=== PATIENT | female | born 1990 | race Caucasian/White ===

== ENCOUNTER 2022-08-21 21:41 | Emergency (ER) | payer SELFPAY ==
--- NOTE | ~2022-08-21 | XR_ITS ---
EXAMINATION: XR CHEST CLINICAL INFORMATION: Cough COMPARISON: 09/15/2013 TECHNIQUE: Frontal view of the chest was obtained. FINDINGS: No significant abnormality is noted involving the heart, lungs, mediastinum, bony thorax or soft tissues. XR/XR chest 1V IMPRESSION: Unremarkable examination.
[2022-08-21 21:47] VITALS: BP 149/97; PULSE 74; RESP 18; TEMP 37.1; O2SAT 97; BMI 36.0
[2022-08-21 22:15] LABS: IDNOW Serial# 08D9AD1C; Strep A Nucleic Acid Negative (Negative)
--- NOTE | 2022-08-21 22:31 | ED.URI ---
HPI - URI/Sore Throat General Chief Complaint: Upper Respiratory Symptoms Stated Complaint: Chest congestion Time Seen by Provider: 08/21/22 22:31 Source: patient Mode of arrival: ambulatory Limitations: no limitations History of Present Illness HPI Narrative: Patient been sick for last 6 days with sore throat cough congestion chills worse for last for 3 days no other family members sick complain of body aches dry cough mostly no shortness of breath no fever patient taking Mucinex without much relief Related Data Previous Rx's Medication Instructions Recorded amoxicillin 875 mg-potassium 1 tab PO BID #20 tabs 08/21/22 clavulanate 125 mg tablet benzonatate 200 mg capsule 200 mg PO TID PRN cough #20 caps 08/21/22 Allergies Allergy/AdvReac Type Severity Reaction Status Date / Time No Known Allergies Allergy Unverified 03/03/20 17:36 Review of Systems Review of Systems: Yes all other systems are reviewed and are negative [facility] Social History Social History Advance Directives: No Advance Directives Information Provided: No Physical Exam Vital Signs: Vital Signs: Last Vital Signs Temp 98.4 F 08/21/22 22:51 Pulse 71 08/21/22 22:51 Resp 18 08/21/22 22:51 BP 129/93 H 08/21/22 22:51 Pulse Ox 95 08/21/22 22:51 O2 Del Method 08/21/22 22:51 BMI result Body Mass Index 36.0 Appearance: Alert. Oriented X3. No acute distress. Eyes: PERRLA, No Nystagmus ENT: Pharynx normal. Oral Mucosa moist Neck: Normal inspection. Neck supple. CVS: Normal heart rate and rhythm. Pulses normal. Respiratory: No respiratory distress. Equal air entry bilateral, no wheezing/rales/rhonchi Abdomen: Soft and nontender. Bowel sounds are present, Skin: Skin warm and dry. Normal skin color. Normal skin turgor. Extremities: No lower extremity edema. No calf tenderness Neuro: Oriented X 3. No motor deficit. Medications Administered Discontinued Medications Generic Name Dose Route Start Last Admin Trade Name Freq PRN Reason Stop Dose Admin Amoxicillin/Clavulanate Potassium 875 mg 08/21/22 22:49 08/21/22 23:02 Amoxicillin/Potassium Clav 875 Mg Tablet PO 08/21/22 22:50 875 mg ONCE ONE Administration Benzonatate 200 mg 08/21/22 22:49 08/21/22 23:02 Benzonatate 100 Mg Capsule PO 08/21/22 22:50 200 mg ONCE ONE Administration Medical Decision Making Lab Data MDM Lab Attestation statement: I reviewed the patient's lab results. Labs: Lab Results 08/21/22 08/21/22 08/21/22 Range/Units 21:55 21:55 21:55 COVID-19 (KIT) Negative (Negative) COVID-19 Clin Com See Note Influenza Type A ([facility]ON[facility]) Negative (Negative) Influenza Type B ([facility]ONINA) Negative (Negative) Influenza A & B Note See Note S. pyogenes GrpA ANTONINA Negative (Negative) Discharge Plan Discharge Clinical Impression: Bronchitis Patient Disposition: Home, Self-Care Instructions: Acute Bronchitis (ED) Additional Instructions: Drink plenty of fluids Stop smoking Antibiotic as prescribed Cough drops as prescribed Follow with PCP if not better Prescriptions: New benzonatate 200 mg capsule 200 mg PO TID PRN (Reason: cough) Qty: 20 0RF amoxicillin-pot clavulanate 875-125 mg tablet 1 tab PO BID Qty: 20 0RF Stand Alone Forms: Work/School Release Interventions: ED Discharge Assessment Last Done: 08/21/22 23:07 Discharge Date/Time: 08/21/22 23:07
[2022-08-21 22:47] LABS: COVID-19 Test Negative (Negative); IDNOW Serial# 16C4AD1C; IDNOW Serial# BCCEAD1C; Influenza A Negative (Negative); Influenza B2 Negative (Negative)
[2022-08-21 22:51] VITALS: BP 129/93; PULSE 71; RESP 18; TEMP 36.9; O2SAT 95
[2022-08-21] MEDS: Amoxicillin/Potassium Clav 875 MG TABLET PO (23:02)
[2022-08-21] MEDS: Benzonatate 100 MG CAPSULE 200 MG PO (23:02)
== END 2022-08-21 23:07 | disposition home or self-care (01) ==
PROVIDERS: Emergency Provider Internal Medicine; PCP Internal Medicine
DX: J40 Bronchitis, not specified as acute or chronic (principal); Z20.822 Contact with and (suspected) exposure to COVID-19; Z20.828 Contact with and (suspected) exposure to other viral communicable diseases; Z79.899 Other long term (current) drug therapy
CPT/HCPCS: 71045; 87502; 87635; 87651; 99282; 99283